=== PATIENT | female | born 1970 | race Caucasian/White ===

== ENCOUNTER 2016-11-10 12:57 | Inpatient (IN) | payer OTHER ==
[~2016-11-10] VITALS: Ht 142.2 cm; Wt 31.6 kg
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
[2016-11-10] MEDS ORDERED: METH5TAB2 PO (14:27)
[2016-11-10] MEDS ORDERED: AMT50 PO (14:27)
[2016-11-10] MEDS ORDERED: ZOLP5TAB PO (14:27)
[2016-11-10 14:30] LABS: BASO % 0.6 %; BASO ABS # 0.05 K/uL (0-0.2); COMPLETE YES; EOS % 1.4 %; HEMATOCRIT 38.4 % (37-47); IG% 0.2 %; LYMPH ABS # 2.44 K/uL (1.2-3.4); MEAN CELL VOLUME 87.9 fL (80-100); MEAN CORPUSCULAR HEMOGLOBIN 31.1 pg (25-34); MEAN CORPUSCULAR HGB CONC 35.4 g/dl (32-36); MEAN PLATELET VOLUME 10.9 fL (7.4-10.4); MONO % 4.8 %; PLATELET COUNT 284 K/uL (130-400); RED BLOOD COUNT 4.37 M/uL (4.2-5.4); WHITE BLOOD COUNT 8.71 K/uL (4.8-10.8)
[2016-11-10 14:40] LABS: PARTIAL THROMBOPLASTIN RATIO 1.1
[2016-11-10 14:46] LABS: ALT/SGPT 18 U/L (12-78); BLOOD UREA NITROGEN 16 mg/dl (7-18); BUN/CREATININE RATIO 20.7 (10-20); CALCIUM 9.1 mg/dl (8.5-10.1); CARBON DIOXIDE 28 mmol/L (21-32); CHLORIDE 107 mmol/L (98-107); CREATININE 0.75 mg/dl (0.60-1.20); GLUCOSE 89 mg/dl (70-99); POTASSIUM 3.9 mmol/L (3.5-5.1); SODIUM 143 mmol/L (136-145)
[2016-11-10 14:47] LABS: URINE APPEARANCE CLOUDY (CLEAR); URINE BILIRUBIN NEG (NEG); URINE COLOR YELLOW; URINE EPITHELIAL CELL AUTO >30 /lpf (0-5); URINE NITRITE POS (NEG); URINE SPECIFIC GRAVITY 1.007 (1.000-1.030); UROBILINOGEN NEG (NEG); ZZUR CULT IF INDIC CLEAN CATCH YES
[2016-11-10 14:50] LABS: ALB/GLOB RATIO 1.1 (0.9-2); ALKALINE PHOSPHATASE 77 U/L (45-117); AST/SGOT 18 U/L (15-37)
[2016-11-10 14:52] LABS: MANUAL MICROSCOPIC REQUIRED? NO; REVIEW REQ? NO
--- NOTE | 2016-11-10 15:00 | DIAGNOSTIC IMAGING REPORT ---
RIGHT THUMB 3 VIEWS CLINICAL HISTORY: Right thumb injury. FINDINGS: 3 views of the right thumb are obtained. No prior studies are available for comparison at the time of dictation. The skeletal structures are well mineralized. No fracture is seen. The joint spaces of the thumb are preserved. The overlying soft tissues are within normal limits. IMPRESSION: Unremarkable radiographic assessment of the right thumb. Electronically signed by: Zac Garcia M.D. 11/10/2016 2:59 PM Dictated Date/Time: 11/10/2016 2:58 PM
[2016-11-10 15:15] LABS: BENZODIAZEPINE, URINE POS (NEG); COCAINE,URINE NEG (NEG); PHENCYCLIDINE, URINE NEG (NEG)
[2016-11-10] MEDS ORDERED: SODIUM CHLORIDE 0.65% NA SOLN 45 ML (OCEAN) PRN (16:00)
[2016-11-10] MEDS ORDERED: ALUMINUM/MAGNESIUM SUSP 30 ML UDC PO PRN (16:00)
[2016-11-10] MEDS ORDERED: BISMUTH SUBSALICYLATE PER ML OMNICELL CHARGE PO PRN (16:00)
[2016-11-10] MEDS ORDERED: ACETAMINOPHEN 325 MG TAB PO PRN (16:00)
[2016-11-10] MEDS ORDERED: hydrOXYzine HCL 25 MG TAB PO PRN (16:00)
[2016-11-10] MEDS ORDERED: MAGNESIUM HYDROXIDE SUSP 30 ML UDC PO PRN (16:00)
[2016-11-10] MEDS ORDERED: NICOTINE POLACRILEX 2 MG GUM MT PRN (17:00)
[2016-11-10 17:04] VITALS: O2SAT 97
[2016-11-10 18:02] VITALS: BP 113/80; PULSE 76; TEMP 36.7; BMI 16.0
[2016-11-10] MEDS ORDERED: CLON1TAB3 PO (19:09)
[2016-11-10] MEDS ORDERED: NAPR1TAB9 PO (19:12)
--- NOTE | 2016-11-10 19:33 | Psych Management Progress Note ---
Psychiatry Miscellaneous Date of Service: Nov 10, 2016. when patient arrived to unit, also reported takes Klonopin 1 mg po BID. Pharmacy closed, staff unable to verify. Ran patient through [employer] drug database [employer], patient shows up as Jocelynn Hernandez and there are monthly Rx's for both Klonopin 1 mg PO BID by Dr. Gildardo Henao, [place]. Interestingly it doesn't appear that methadone is searchable on the data base. Use of Klonopin in methadone users is not recommended, combined risks of respiratory depression. Will give 0.5 mg this hs to avoid withdrawal and reevaluate first thing in am.
[2016-11-10] MEDS: NAPROXEN 250 MG TAB PO PRN ×2 (19:51→21:53)
[2016-11-10] MEDS ORDERED: INFLUENZA VIRUS QUAD VACCINE 0.5 ML SYR IM. ONE (20:45)
[2016-11-10] MEDS ORDERED: INFLUENZA ADMINISTRATION CHARGE ONE (20:45)
[2016-11-10] MEDS ORDERED: AMITRIPTYLINE HCL 50 MG TAB PO SCH (21:00)
[2016-11-10] MEDS: CLONAZEPAM 0.5 MG TAB PO SCH (21:52)
[2016-11-10 22:09] VITALS: Ht 142.2 cm; Wt 31.6 kg
[2016-11-10] MEDS: hydrOXYzine HCL 25 MG TAB PO PRN (22:21)
[2016-11-11] MEDS: hydrOXYzine HCL 25 MG TAB PO PRN ×2 (01:56→21:43)
[2016-11-11 06:44] VITALS: BP_SYST 100; BP_SYST 92; BP_DIAS 54; BP_DIAS 61; PULSE 63; PULSE 71; TEMP 36.3
[2016-11-11 08:07] LABS: CHOLESTEROL/HDL RATIO 3.6; PREALBUMIN 15.6 mg/dl (20-40)
[2016-11-11] MEDS: CLONAZEPAM 0.5 MG TAB PO SCH ×2 (08:50→21:22)
[2016-11-11] MEDS: METHADONE ORAL SOLN 2 MG/1ML PO SCH (08:51)
[2016-11-11] MEDS: NICOTINE 21 MG/24 HR TDSY TD SCH (08:51)
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
[2016-11-11] MEDS: NITROFURANTOIN MONOHYDRATE 100 MG CAP PO SCH ×2 (12:21→21:22)
[2016-11-11] MEDS: NAPROXEN 250 MG TAB PO PRN (12:52)
[2016-11-11] MEDS: MIRTAZAPINE TAB 15 MG TAB PO SCH (21:22)
[2016-11-11] MEDS: AMITRIPTYLINE HCL 25 MG TAB PO SCH (21:22)
[2016-11-12 06:56] VITALS: BP_SYST 105; BP_SYST 113; BP_DIAS 72; BP_DIAS 78; PULSE 65; PULSE 84; TEMP 36.4
[2016-11-12] MEDS: NICOTINE 21 MG/24 HR TDSY TD SCH (07:29)
[2016-11-12] MEDS: NITROFURANTOIN MONOHYDRATE 100 MG CAP PO SCH ×2 (07:29→21:21)
[2016-11-12] MEDS: CLONAZEPAM 0.5 MG TAB PO SCH (07:29)
[2016-11-12] MEDS: METHADONE ORAL SOLN 2 MG/1ML PO SCH (07:59)
[2016-11-12] MEDS: MULTIVITAMIN TAB PO SCH (08:50)
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
[2016-11-12] MEDS: NAPROXEN 250 MG TAB PO PRN (16:02)
[2016-11-12] MEDS: BOOST PLUS VANILLA PO SCH ×2 (17:27)
[2016-11-12] MEDS: AMITRIPTYLINE HCL 25 MG TAB PO SCH (21:20)
[2016-11-12] MEDS: MIRTAZAPINE TAB 15 MG TAB PO SCH (21:21)
[2016-11-12] MEDS: hydrOXYzine HCL 25 MG TAB PO PRN (21:25)
[2016-11-12] MEDS ORDERED: BOOST VANILLA PO SCH ×2 (22:00)
[2016-11-12] MEDS ORDERED: CLONAZEPAM 0.5 MG TAB PO SCH (22:00)
[2016-11-13 06:53] VITALS: BP_SYST 109; BP_SYST 91; BP_DIAS 64; BP_DIAS 74; PULSE 68; PULSE 89; TEMP 36.7
[2016-11-13] MEDS: NITROFURANTOIN MONOHYDRATE 100 MG CAP PO SCH (08:26)
[2016-11-13] MEDS: MULTIVITAMIN TAB PO SCH (08:26)
[2016-11-13] MEDS: NICOTINE 21 MG/24 HR TDSY TD SCH (08:27)
[2016-11-13] MEDS: METHADONE ORAL SOLN 2 MG/1ML PO SCH (08:28)
[2016-11-13] MEDS: BOOST PLUS VANILLA PO SCH ×2 (08:37)
[2016-11-13] MEDS ORDERED: RMR15 PO (13:57)
[2016-11-13] MEDS ORDERED: MULT-589 PO (13:57)
[2016-11-13] MEDS ORDERED: MCRB100 PO (13:57)
[2016-11-13] MEDS ORDERED: AMT50 PO (13:57)
[2016-11-13] MEDS: NAPROXEN 250 MG TAB PO PRN (14:00)
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
[2016-11-13] MEDS ORDERED: BOOST PLUS VANILLA PO SCH ×2 (17:45)
[2016-11-14 15:10] LABS: HYDROXYETHYLFLURAZEPAM CONF NEGATIVE NG/ML (CUTOFF=50); HYDROXYMIDAZOLAM NEGATIVE NG/ML (CUTOFF=50); HYDROXYTRIAZOLAM CONF NEGATIVE NG/ML (CUTOFF=50); METHADONE METABOLITE 1330 NG/ML (CUTOFF=100); METHADONE VERIFIC 1080 NG/ML (CUTOFF=100); TEMAZEPAM CONF NEGATIVE NG/ML (CUTOFF=50)
== END 2016-11-13 16:30 | disposition home or self-care (01) | DRG 885 ==
LOC: C.EDB 12:59 → C.MHU 15:59
PROVIDERS: ADMIT Psychiatry & Neurology Child & Adolescent Psychiatry; ATTEND Psychiatry & Neurology Child & Adolescent Psychiatry
DX: F33.9 Major depressive disorder, recurrent, unspecified (principal); F11.20 Opioid dependence, uncomplicated; R45.851 Suicidal ideations; Z68.1 Body mass index [BMI] 19.9 or less, adult; F41.9 Anxiety disorder, unspecified; F17.210 Nicotine dependence, cigarettes, uncomplicated; F12.90 Cannabis use, unspecified, uncomplicated; R63.4 Abnormal weight loss; M54.9 Dorsalgia, unspecified; G89.29 Other chronic pain; R82.71 Bacteriuria; B96.20 Unspecified Escherichia coli [E. coli] as the cause of diseases classified elsewhere; S60.011A Contusion of right thumb without damage to nail, initial encounter; Y04.0XXA Assault by unarmed brawl or fight, initial encounter; Y92.009 Unspecified place in unspecified non-institutional (private) residence as the place of occurrence of the external cause; Z96.7 Presence of other bone and tendon implants; Z23 Encounter for immunization; Z62.820 Parent-biological child conflict; Z79.899 Other long term (current) drug therapy